=== PATIENT | female | born 1980 | race Caucasian/White ===

== ENCOUNTER 2018-04-18 01:44 | Emergency (ER) | payer SELFPAY ==
[~2018-04-18] VITALS: Ht 170.2 cm; Wt 94.8 kg
[2018-04-18] MEDS ORDERED: DIPHENHYDRAMINE 50 MG/ML, 1ML ONE (02:13)
[2018-04-18] MEDS ORDERED: KETOROLAC 30 MG/1 ML ONE (02:13)
[2018-04-18] MEDS ORDERED: PROCHLORPERAZINE 5 MG/ML, 2ML ONE (02:13)
[2018-04-18] MEDS ORDERED: PROCHLORPERAZINE 5 MG/ML, 2ML IVPush ONE (02:30)
[2018-04-18] MEDS ORDERED: DIPHENHYDRAMINE 50 MG/ML, 1ML IVPush ONE (02:30)
[2018-04-18] MEDS ORDERED: KETOROLAC 30 MG/1 ML IVPush ONE (02:30)
[2018-04-18 02:52] VITALS: BP 107/56
== END 2018-04-18 03:08 | disposition home or self-care (01) ==
LOC: ED 03:00
DX: G43.909 Migraine, unspecified, not intractable, without status migrainosus (principal); F10.120 Alcohol abuse with intoxication, uncomplicated
CPT/HCPCS: 96374; 96375; 99284; J0780; J1200; J1885